=== PATIENT | female | born 1980 | race Caucasian/White ===

== ENCOUNTER 2017-02-12 00:22 | Emergency (ER) | payer MEDICAID ==
[~2017-02-12] VITALS: Ht 152.4 cm; Wt 59.5 kg
[2017-02-12 00:26] VITALS: Ht 152.4 cm; Wt 59.5 kg
[2017-02-12 01:35] LABS: URINE BLOOD (Dip) POC 2+ (NEGATIVE)
--- NOTE | 2017-02-12 02:02 | ERA ---
ER Documentation Chief Complaint Date/Time DATE: 02/12/17 TIME: 01:58 Chief Complaint pelvic pain x 1 day HPI This is a 36-year-old female with a chief complaint of bilateral pelvic pain 1 day. Denies similar symptoms in the past. Denies vaginal bleeding, fever, dysuria, nausea, vomiting, diarrhea, vaginal discharge, foul odor, or identifiable patterns of symptoms. Patient has not taken any medications or done anything to relieve the symptoms. There are no other associated manifestations. ROS All systems reviewed and are negative except as per history of present illness. Medications Home Meds No Active Prescriptions or Reported Meds Allergies Allergies: Coded Allergies: No Known Allergy (Unverified , NONE, 08/18/14) PMhx/Soc History of Surgery: Yes (TUBAL LIGATION 12/26/2008) Hx Neurological Disorder: No Hx Respiratory Disorders: No Hx Cardiac Disorders: No Hx Psychiatric Problems: No Hx Miscellaneous Medical Probl: No Hx Alcohol Use: No Hx Substance Use: No Hx Tobacco Use: No Smoking Status: Never smoker Physical Exam Vitals Vital Signs Date Time Temp Pulse Resp B/P Pulse Ox O2 Delivery O2 Flow Rate FiO2 02/12/17 00:26 98.7 103 20 144/84 99 Physical Exam Const: Healthy-appearing. Well-nourished. Well-developed. No acute distress. Abd: Mild pelvic tenderness bilaterally. Mild suprapubic tenderness. Soft, non tender, non distended. No guarding, masses. Normal bowel sounds. No McBurney's point tenderness. Head: Normocephalic, Atraumatic. Eyes: Non-injected; No scleral erythema, discharge or foreign body. EOMI and STEVE bilaterally. Ears: Normal External Ears, EACs clear, TM normal bilaterally without erythema. Nose: Normal nose without discharge, septal deviation, or sinus tenderness. Oral: No oral edema visualized. Mucous membranes moist and pink. Neck: No cervical lymphadenopathy, masses or goiter palpated. Full range of motion. Supple. Trachea midline. ~ No meningismus. Pulm: Good air movement in upper and lower respiratory tracts. No dyspnea, stridor, tripoding or drooling. Clear to auscultation bilaterally. Cardio: Regular rate and rhythm; No murmurs, gallops or rubs auscultated. No JVD grossly observed. Radial and posterior tibial pulses 2+ bilaterally. No cyanosis. Capillary refill less than 2 seconds. MS: Normal motor strength, normal tone with gross examination. Skin: No petechiae or rashes. No ulcer, induration, jaundice. Good turgor. Back: No midline, flank or CVA tenderness. Ext: No cyanosis, edema or palpable cord. Normal movement of all extremities grossly observed. Neur: Awake, alert and oriented x3. Neurovascularly intact bilaterally. Psych: Normal Mood and Affect. Results 24 hrs Laboratory Tests Test 02/12/17 01:38 Bedside Urine pH (LAB) 6.0 Bedside Urine Protein (LAB) Negative Bedside Urine Glucose (UA) Negative Bedside Urine Ketones (LAB) Negative Bedside Urine Blood 2+ Bedside Urine Nitrite (LAB) Negative Bedside Urine Leukocyte Esterase (L Negative Procedures/MDM Patient is being evaluated and worked up for pelvic pain as described in the history and physical exam. My current differential diagnosis includes, but is not limited to, the following: ectopic , appendicitis, nephrolithiasis , primary dysmenorrhea, and urinary tract infection among others. ED treatment consisted of ibuprofen. Urine dip was obtained to rule out infection and was unremarkable. Patient will receive an ultrasound to rule out ovarian torsion. Patient eloped before ultrasound was taken. Departure Diagnosis: Primary Impression: Acute pain in female pelvis Condition: Stable Additional Instructions: Patient eloped before ultrasound. Dipstick was negative for signs of infection. JUANJOSE AVENDANO PA-C Feb 12, 2017 02:01
== END 2017-02-12 02:25 | disposition left against medical advice (07) ==
LOC: FTE 00:22
DX: R10.2 Pelvic and perineal pain (principal)
CPT/HCPCS: 81003; Z7502; 99282